=== PATIENT | female | born 1945 | race Caucasian/White ===

== ENCOUNTER 2022-02-01 10:39 | Emergency (ER) | payer OTHER ==
[2022-02-01 12:07] LABS: HEMOGLOBIN 12.7 gm/dl (12.3-15.3); RED BLOOD COUNT 3.95 M/UL (4.00-5.10); WHITE BLOOD COUNT 8.1 K/UL (4.5-11.0)
[2022-02-01 12:43] LABS: BUN/CREATININE RATIO 24 (0-10)
== END 2022-02-01 15:53 | disposition home or self-care (01) ==
LOC: ER1 10:39
PROVIDERS: Emergency Medicine
DX: I20.0 Unstable angina (principal)
CPT/HCPCS: 71045; 80053; 82550; 82553; 84484; 85025; 93005; 99285